=== PATIENT | female | born 1995 | race African-American/Black ===

== ENCOUNTER 2021-12-22 22:27 | Emergency (ER) | payer OTHER ==
--- OUTSIDE RECORDS SUMMARY | 2021-12-22 22:29 | XMS REPORT | Continuity of Care Document ---
:1995 Author Organization [facility] Address [address] [place] [address] Dr. Smart [address] [place] [id number] Care Team Providers Name Role Phone LAVONNE Attending Clinician Unavailable Daren Whitmore Attending Clinician [phone] LAVONNE Admitting Clinician Unavailable Payers Payer Name Policy Type Policy Number Effective Date Expiration Date James ARCOS - [id number] 3236-12-31 00:00:00 [facility] (PPO) Problems This patient has no known problems. Allergies, Adverse Reactions, Alerts This patient has no known allergies or adverse reactions. Medications This patient has no known medications. Procedures This patient has no known procedures. Encounters Start End Encounter Admission Attending Care Care Encounter Source Date/Time Date/Time Type Type Clinicians Facility Department ID 2021-11-29 2021-11-29 Outpatient [facility] [id number] [place] 05:29:00 05:29:00 [facility] 2021-10-25 2021-10-25 Outpatient [facility] [id number] [place] 04:02:00 04:02:00 [facility] 2021-10-18 2021-10-18 Outpatient [facility] [id number] [place] 05:54:00 05:54:00 121 [facility] 2021-10-18 2021-10-18 Outpatient [facility] [id number] [place] 05:54:00 05:54:00 [facility] 2021-10-18 2021-10-18 Outpatient [facility] [id number] 00:00:00 00:00:00 Matt [id number] Daren [id number] 2021-08-15 2021-08-15 Outpatient [facility] [id number] [place] 02:51:00 02:51:00 [facility] 2021-08-15 2021-08-15 Outpatient [facility] [id number] 00:00:00 00:00:00 Matt [id number] Daren [id number] 2021-08-08 2021-08-08 Outpatient [facility] [id number] [place] 12:03:00 12:03:00 [facility] 2021-08-08 2021-08-08 Outpatient [facility] [id number] 00:00:00 00:00:00 Matt [id number] Daren [id number] 2021-06-01 2021-06-01 Outpatient [facility] [id number] [place] 01:02:00 01:02:00 [facility] 2021-04-26 2021-04-26 Outpatient [facility] [id number] [place] 01:18:00 01:18:00 730 [facility] 2021-03-23 2021-03-23 Outpatient [facility] [id number] [place] 01:01:00 01:01:00 626 [facility] 2021-02-15 2021-02-15 Outpatient [facility] [id number] [place] 11:45:00 11:45:00 521 [facility] 2021-02-09 2021-02-09 Outpatient [facility] [id number] [place] 01:01:00 01:01:00 515 [facility] 2021-02-04 2021-02-04 Outpatient [facility] [id number] [place] 09:30:00 09:30:00 510 [facility] 2021-01-29 2021-01-29 Outpatient [facility] [id number] [place] 05:35:00 05:35:00 506 [facility] 2021-01-29 2021-01-29 Outpatient [facility] [id number] [place] 05:33:00 05:33:00 504 [facility] 2021-01-29 2021-01-29 Outpatient Whit[facility], [facility] [id number] 00:00:00 00:00:00 Matt [id number] Daren [id number] 2021-01-05 2021-01-05 Outpatient [facility] [id number] [place] 01:02:00 01:02:00 410 [facility] 2021-01-05 2021-01-05 Outpatient [facility] [id number] [place] 01:02:00 01:02:00 412 [facility] 2021-01-03 2021-01-03 Outpatient [facility] [id number] [place] 11:44:00 11:44:00 408 [facility] 2020-12-29 2020-12-29 Outpatient [facility] [id number] [place] 01:02:00 01:02:00 403 [facility] 2020-11-24 2020-11-24 Outpatient [facility] [id number] [place] 01:02:00 01:02:00 227 [facility] 2020-10-20 2020-10-20 Outpatient [facility] [id number] [place] 01:03:00 01:03:00 123 [facility] 2020-10-05 2020-10-05 Outpatient [facility] [id number] [place] 12:05:00 12:05:00 108 [facility] 2020-10-05 2020-10-05 Outpatient [facility] [id number] [place] 12:05:00 12:05:00 110 [facility] 2020-10-01 2020-10-01 Outpatient [facility] [id number] [place] 05:30:00 05:30:00 104 [facility] 2020-09-15 2020-09-15 Outpatient [facility] [id number] [place] 01:02:00 01:02:00 219 [facility] Results This patient has no known results.
[2021-12-22] MEDS ORDERED: ACETAMINOPHEN 500 MG TAB ONE (23:38)
[2021-12-23 00:06] LABS: Absolute Lymphocytes (CBC) 1.7 K/uL (0.7-4.9); Hematocrit 31.3 % (36.0-45.0); Lymphocytes % 14.1 % (15.3-44.8); MPV 8.9 fL (7.6-11.3); RBC Red Blood Cell Count 4.45 M/uL (3.86-4.86)
[2021-12-23 00:07] LABS: ALT/SGPT 18 U/L (12-78); AST/SGOT 22 U/L (15-37); Albumin 2.5 g/dL (3.4-5.0); Alkaline Phosphatase 230 U/L (45-117); BUN Blood Urea Nitrogen 4 mg/dL (7-18); Bicarbonate 23 mmol/L (21-32); Bilirubin Direct 0.1 mg/dL (0-0.2); Bilirubin Total 0.6 mg/dL (0.2-1.0); Glucose Level 93 mg/dL (74-106); Magnesium 1.9 mg/dL (1.8-2.4); NT PRO-BNP 27 pg/mL (<125); Potassium 3.4 mmol/L (3.5-5.1); Protein, Total 6.1 g/dL (6.4-8.2); Sodium Level 140 mmol/L (136-145); Troponin High Sensitivity 5.4 pg/mL (<58.9)
--- NOTE | 2021-12-23 02:25 | ER ---
Nurse's Notes [facility] Name: Reji Pozo Age: 26 yrs Sex: Female : 1995 Arrival Date: 12/22/2021 Time: 22:29 Bed 13 Private MD: Diagnosis: Chest pain, unspecified;34 weeks gestation of ;UTI/ Urinary tract infection, site not specified Presentation: 12/22 22:49 Chief complaint: Patient states: Reports chest pain to left anterior chest radiating to lp1 left posterior shoulder area since this AM; Denies any events that aggravate pain, denies shortness of breath; Patient reports she is 34 weeks . Coronavirus screen: At this time, the client does not indicate any symptoms associated with coronavirus-19. Ebola Screen: No symptoms or risks identified at this time. Initial Sepsis Screen: Does the patient meet any 2 criteria? No. Patient's initial sepsis screen is negative. Does the patient have a suspected source of infection? No. Patient's initial sepsis screen is negative. Risk Assessment: Do you want to hurt yourself or someone else? Patient reports no desire to harm self or others. Onset of symptoms was December 22, 2021. 22:49 Acuity: YASMINE 3 lp1 22:49 Method Of Arrival: Wheelchair lp1 Triage Assessment: 23:45 General: Appears in no apparent distress. Behavior is calm, cooperative. Pain: russell Complains of pain in chest. 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 - Social history:: Smoking status: Patient denies any tobacco usage or history of. Patient/guardian denies using alcohol, street drugs. Screenin:44 Abuse screen: Denies threats or abuse. Denies injuries from another. Nutritional russell screening: No deficits noted. Tuberculosis screening: No symptoms or risk factors identified. Fall Risk None identified. Assessment: 23:38 Reassessment: Patient appears in no apparent distress at this time. Pain: Complains of russell pain in chest Pain does not radiate. Pain began suddenly, has happened several times before but she hasn't been seen before for this. 12/23 00:05 Cardiovascular: No deficits noted. russell 02:51 Reassessment: eqe=131. russell Vital Signs: 12/22 22:35 BP 114 / 74; Pulse 82; Resp 18; Temp 98.5; Pulse Ox 100% on R/A; Pain 3/10; russell 22:45 BP 113 / 75; Pulse 81; Resp 18; Pulse Ox 100% on R/A; russell 22:49 BP 114 / 74; Pulse 88; Resp 15; Temp 98.5(O); Pulse Ox 100% on R/A; Weight 89.81 kg lp1 (R); Height 5 ft. 5 in. (165.10 cm); Pain 5/10; 23:30 BP 108 / 68; Pulse 78; Resp 18; Pulse Ox 100% on R/A; Pain 0/10; russell 12/23 02:59 BP 106 / 68; Pulse 78; Resp 16; Temp 98.5; Pulse Ox 100% on R/A; Pain 0/10; russell 12/22 22:49 Body Mass Index 32.95 (89.81 kg, 165.10 cm) lp1 ED Course: 12/22 22:29 Patient arrived in ED. ja2 22:31 Julisa Rogers, RN is Primary Nurse. russell 22:33 Jac Lugo MD is Attending Physician. mh7 22:51 Triage completed. lp1 22:51 Arm band placed on. lp1 23:20 Basic Metabolic Panel Sent. russell 23:20 CBC with Diff Sent. russell 23:20 LFT's Sent. russell 23:20 Magnesium Sent. russell 23:20 NT PRO-BNP Sent. russell 23:20 PT-INR Sent. russell 23:21 Troponin HS Sent. russell 23:29 X-ray completed. Portable x-ray completed in exam room. Patient tolerated procedure 1 well. 23:31 XRAY Chest (1 view) In Process Unspecified. EDMS 23:44 Patient has correct armband on for positive identification. Bed in low position. Call russell light in reach. Adult w/ patient. school bus monitor on. Pulse ox on. NIBP on. 23:44 Patient maintains SpO2 saturation greater than 95% on room air. russell 23:45 No provider procedures requiring assistance completed. russell 12/23 01:22 CT Chest For PE Angio In Process Unspecified. EDMS 02:24 Alexander Silvestre MD is Referral Physician. [facility] 02:51 Urine Culture Sent. russell 03:00 intact, bleeding controlled, No redness/swelling at site. Pressure dressing applied. russell Administered Medications: 12/22 23:37 Drug: Tylenol 1000 mg Route: PO; russell 12/23 02:50 Follow up: Response: No adverse reaction; Pain is decreased russell 02:51 Drug: Macrobid (nitrofurantoin) 100 mg Route: PO; russell Outcome: 02:24 Discharge ordered by . [facility] 03:00 Condition: stable russell 03:00 Discharged to home ambulatory, with friend. russell 03:00 Discharge instructions given to patient, Instructed on discharge instructions, follow russell up and referral plans. medication usage, Demonstrated understanding of Prescriptions given X 1. 03:01 Patient left the ED. russell Signatures: Dispatcher [employer] EDMD Pushpa Lowe 1 Cordelia Malcolm, MELINDA RN 1 Jac Lugo MD MD 7 Carmen Choe Brenda, RN RN russell
--- NOTE | 2021-12-23 02:25 | EDPHYS ---
Physician Documentation [facility] Name: Reji Pozo Age: 26 yrs Sex: Female : 1995 Arrival Date: 12/22/2021 Time: 22:29 Bed 13 Private MD: ED Physician Jac Lugo HPI: 12/22 23:00 This 26 yrs old Black Female presents to ER via Wheelchair with complaints of Chest mh7 Pain. 23:00 The patient or guardian reports chest pain that is located primarily in the anterior mh7 chest wall, left. The pain radiates to the left shoulder. Associated signs and symptoms: Pertinent negatives: abdominal pain, cough, diaphoresis, dizziness, headache, lower extremity pain, lower extremity swelling, lightheadedness, nausea, near syncope, palpitations, recent travel, shortness of breath, syncope, vomiting. The chest pain is described as sharp. Duration: The patient or guardian reports multiple episodes, that are intermittent, that wax and wane, with no pattern. Modifying factors: The symptoms are alleviated by nothing. the symptoms are aggravated by nothing. 23:00 Severity of pain: At its worst the pain was moderate today, in the emergency department mh7 the pain has improved moderately. 23:00 Patient is 34 weeks with sharp chest pain that started today. Denies any other mh7 complaints. No complications during this .. 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 - Social history:: Smoking status: Patient denies any tobacco usage or history of. Patient/guardian denies using alcohol, street drugs. ROS: 23:00 Constitutional: Negative for fever, chills, and weight loss, Eyes: Negative for injury, mh7 pain, redness, and discharge, ENT: Negative for injury, pain, and discharge, Neck: Negative for injury, pain, and swelling, Respiratory: Negative for shortness of breath, cough, wheezing, and pleuritic chest pain, Abdomen/GI: Negative for abdominal pain, nausea, vomiting, diarrhea, and constipation, Back: Negative for injury and pain, : Negative for injury, bleeding, discharge, and swelling, MS/Extremity: Negative for injury and deformity, Skin: Negative for injury, rash, and discoloration, Neuro: Negative for headache, weakness, numbness, tingling, and seizure, Psych: Negative for depression, anxiety, suicide ideation, homicidal ideation, and hallucinations, Allergy/Immunology: Negative for hives, rash, and allergies, Endocrine: Negative for neck swelling, polydipsia, polyuria, polyphagia, and marked weight changes, Hematologic/Lymphatic: Negative for swollen nodes, abnormal bleeding, and unusual bruising. Exam: 23:00 Constitutional: This is a well developed, well nourished patient who is awake, alert, mh7 and in no acute distress. Head/Face: Normocephalic, atraumatic. Eyes: Pupils equal round and reactive to light, extra-ocular motions intact. Lids and lashes normal. Conjunctiva and sclera are non-icteric and not injected. Cornea within normal limits. Periorbital areas with no swelling, redness, or edema. Neck: Trachea midline, no thyromegaly or masses palpated, and no cervical lymphadenopathy. Supple, full range of motion without nuchal rigidity, or vertebral point tenderness. No Meningismus. Chest/axilla: Normal chest wall appearance and motion. Nontender with no deformity. No lesions are appreciated. Cardiovascular: Regular rate and rhythm with a normal S1 and S2. No gallops, murmurs, or rubs. Normal PMI, no JVD. No pulse deficits. Respiratory: Lungs have equal breath sounds bilaterally, clear to auscultation and percussion. No rales, rhonchi or wheezes noted. No increased work of breathing, no retractions or nasal flaring. Abdomen/GI: Soft, non-tender, with normal bowel sounds. No distension or tympany. No guarding or rebound. No evidence of tenderness throughout. Back: No spinal tenderness. No costovertebral tenderness. Full range of motion. Skin: Warm, dry with normal turgor. Normal color with no rashes, no lesions, and no evidence of cellulitis. MS/ Extremity: Pulses equal, no cyanosis. Neurovascular intact. Full, normal range of motion. Neuro: Awake and alert, GCS 15, oriented to person, place, time, and situation. Cranial nerves II-XII grossly intact. Motor strength 5/5 in all extremities. Sensory grossly intact. Cerebellar exam normal. Normal gait. 23:00 ECG was reviewed by the Attending Physician. 7 Vital Signs: 22:35 BP 114 / 74; Pulse 82; Resp 18; Temp 98.5; Pulse Ox 100% on R/A; Pain 3/10; russell 22:45 BP 113 / 75; Pulse 81; Resp 18; Pulse Ox 100% on R/A; russell 22:49 BP 114 / 74; Pulse 88; Resp 15; Temp 98.5(O); Pulse Ox 100% on R/A; Weight 89.81 kg lp1 (R); Height 5 ft. 5 in. (165.10 cm); Pain 5/10; 23:30 BP 108 / 68; Pulse 78; Resp 18; Pulse Ox 100% on R/A; Pain 0/10; russell 12/23 02:59 BP 106 / 68; Pulse 78; Resp 16; Temp 98.5; Pulse Ox 100% on R/A; Pain 0/10; russell 12/22 22:49 Body Mass Index 32.95 (89.81 kg, 165.10 cm) lp1 MDM: 02:22 Differential diagnosis: acute myocardial infarction, acute pericarditis, anxiety, mh7 costochondritis, pleurisy, pneumonia, pneumothorax, pulmonary embolus. HEART Score: History: Slightly Suspicious (0), ECG: Non specific repolarization disturbance / LBTB / PM (1), Age: < or = 45 years (0), Risk Factors: No Risk Factors Known (0), Troponin: < or = 1 x Normal Limit (0), Total Score = 1. Data reviewed: vital signs, nurses notes, old medical records, lab test result(s), cardiac enzymes, CBC, electrolytes, urinalysis, EKG, radiologic studies, CT scan, plain films. Data interpreted: Pulse oximetry: on room air is 100 %. Interpretation: normal. Counseling: I had a detailed discussion with the patient and/or guardian regarding: the historical points, exam findings, and any diagnostic results supporting the discharge/admit diagnosis, lab results, radiology results, the need for outpatient follow up, to return to the emergency department if symptoms worsen or persist or if there are any questions or concerns that arise at home. Response to treatment: the patient's symptoms have resolved after treatment, the patient's blood pressure is in an acceptable range, mental status has returned to baseline, the patient no longer shows bradycardia, the patient is not short of breath, the patient is not tachycardic, the patient's pain is gone, the patient's temperature has normalized. 02:24 Patient medically screened. [facility] 12/22 22:54 Order name: Basic Metabolic Panel; Complete Time: 00:18 [facility] 12/22 22:54 Order name: CBC with Diff; Complete Time: 00:18 [facility] 12/22 22:54 Order name: LFT's; Complete Time: 00:18 [facility] 12/22 22:54 Order name: Magnesium; Complete Time: 00:18 [facility] 12/22 22:54 Order name: NT PRO-BNP; Complete Time: 00:18 [facility] 12/22 22:54 Order name: PT-INR; Complete Time: 00:18 [facility] 12/22 22:54 Order name: Troponin HS; Complete Time: 00:18 [facility] 12/22 22:54 Order name: XRAY Chest (1 view) [facility] 12/22 22:54 Order name: EKG; Complete Time: 22:55 [facility] 12/23 00:21 Order name: CT Chest For PE Angio [facility] 12/23 02:37 Order name: Urine Dipstick-Ancillary; Complete Time: 02:43 EDMS 12/23 02:44 Order name: Urine Culture [facility] 12/22 22:54 Order name: Cardiac monitoring; Complete Time: 23:04 [facility] 12/22 22:54 Order name: EKG - Nurse/Tech; Complete Time: 23:05 [facility] 12/22 22:54 Order name: IV Saline Lock; Complete Time: 23:20 [facility] 12/22 22:54 Order name: Labs collected and sent; Complete Time: 23:20 [facility] 12/22 22:54 Order name: O2 Per Protocol; Complete Time: 23:05 [facility] 12/22 22:54 Order name: O2 Sat Monitoring; Complete Time: 23:05 [facility] 12/22 22:54 Order name: Urine Dipstick-Ancillary (obtain specimen); Complete Time: 02:50 [facility] 12/23 02:14 Order name: Heart Tones; Complete Time: 02:51 7 EC/27 23:00 Rate is 88 beats/min. Rhythm is regular, Normal Sinus Rhythm with No ectopy. QRS Halls [facility] is Normal. NM interval is normal. QRS interval is normal. QT interval is normal. No Q waves. T waves are Inverted in leads III, aVF. No ST changes noted. Clinical impression: NSR w/ Non-specific ST/T Changes. Administered Medications: 23:37 Drug: Tylenol 1000 mg Route: PO; russell 12/23 02:50 Follow up: Response: No adverse reaction; Pain is decreased russell 02:51 Drug: Macrobid (nitrofurantoin) 100 mg Route: PO; russell Disposition Summary: 12/23/21 02:24 Discharge Ordered Location: Home [facility] Problem: new [facility] Symptoms: have improved [facility] Condition: Stable [facility] Diagnosis - Chest pain, unspecified [facility] - 34 weeks gestation of [facility] - UTI/ Urinary tract infection, site not specified [facility] Followup: [facility] - With: Private Physician - When: 1 - 2 days - Reason: Worsening of condition, Recheck today's complaints, Continuance of care, Re-evaluation by your physician Followup: [facility] - With: Alexander Silvestre MD - When: 1 - 2 days - Reason: Worsening of condition, Recheck today's complaints, Continuance of care, Re-evaluation by your physician Discharge Instructions: - Discharge Summary Sheet [facility] - Urinary Tract Infection, Adult, [id number] [facility] - Nonspecific Chest Pain, Adult, Cvnw-[id number]-Cztt [facility] - Third Trimester of , Ycfm-xo-Xsus [facility] Forms: - Medication Reconciliation Form [facility] - Thank You Letter [facility] - Antibiotic Education [facility] - Prescription Opioid Use [facility] Prescriptions: - Macrobid 100 mg Oral Capsule - take 1 capsule by ORAL route every 12 hours for 7 days; 14 capsule; Refills: 0, [facility] Product Selection Permitted Signatures: Dispatcher [employer] Jac Pardo MD MD [facility] Julisa Rogers RN RN russell Corrections: (The following items were deleted from the chart) 12/22 23:03 23:00 Severity of pain: At its worst the pain was mh7 [facility]
[2021-12-23 02:36] LABS: Urine Blood Negative (Negative); Urine Glucose Negative (Negative); Urine Protein 1+ (Negative); Urine Specific Gravity 1.025 (1.005-1.030); Urine pH 6.5 (5.0-7.0)
[2021-12-23 03:05] VITALS: TEMP 98.5; O2SAT 100
[2021-12-23 03:11] VITALS: BP 106/68
--- NOTE | 2021-12-23 11:38 | RAD REPORT ---
EXAM DESCRIPTION: CT - Chest For Pe Angio - 12/23/2021 2:42 am CLINICAL HISTORY: The patient is 26 years old and is Female; CHEST PAIN TECHNIQUE: Axial computed tomographic angiography images of the chest with intravenous contrast. S agittal and coronal reformatted images were created and reviewed. This CT exam was performed using one or more of the following dose reduction techniques: automated exposure control, adjustment of t he mA and/or kV according to patient size, and/or use of iterative reconstruction technique. MIP re constructed images were created and reviewed. COMPARISON: No relevant prior studies available. FINDINGS: Limitations: Evaluation is somewhat limited due to suboptimal contrast bolus. Pulmonary arteries: Unremarkable. No pulmonary embolism. Aorta: No acute findings. No thoracic aortic aneurysm. Lungs: Unremarkable. No mass. No consolidation. Pleural space: Unremarkable. No significant effusion. No pneumothorax. Heart: Unremarkable. No cardiomegaly. No significant pericardial effusion. No evidence of RV dysfunction. Bones/joints: No acute fracture. No dislocation. Soft tissues: Unremarkable. Lymph nodes: Unremarkable. No enlarged lymph nodes. IMPRESSION: No acute finding. No evidence of pulmonary embolism, though evaluation is somewhat limit ed due to suboptimal contrast bolus. Electronically signed by: Ifeanyi Powell MD 12/23/2021 2:03 AM CDT Due to temporary technical issues with the PACS/Fluency reporting system, reports are being signed by the in house radiologist without review as a courtesy to ensure prompt reporting. The interpreting r adiologist is fully responsible for the content of the report.
--- NOTE | 2021-12-23 12:32 | RAD REPORT ---
EXAM DESCRIPTION: RAD - Chest Single View - 12/22/2021 11:29 pm CLINICAL HISTORY: CHEST PAIN COMPARISON: None. TECHNIQUE: AP Chest. FINDINGS: Normal cardiac size. Pulmonary vasculature appears normal. Normal cardiomediastinal contou rs. Lungs are clear. Pleural spaces are clear. Unremarkable soft tissues and bones. IMPRESSION: 1. Negative chest exam. Electronically signed by: Alejandra Vázquez DO 12/22/2021 11:42 PM CDT Due to temporary technical issues with the PACS/Fluency reporting system, reports are being signed by the in house radiologist without review as a courtesy to ensure prompt reporting. The interpreting r adiologist is fully responsible for the content of the report.
--- NOTE | 2021-12-24 12:37 | EKG ---
Test Date: 2021-12-22 Test Time: 22:34:46 Bevel Polisher: KALYN MEASUREMENT RESULTS: Intervals: Rate: 88 KS: 154 QRSD: 78 QT: 352 QTc: 425 [place]: P: 31 KS: 154 QRS: 41 T: -8 INTERPRETIVE STATEMENTS: Normal sinus rhythm Nonspecific T wave abnormality Abnormal ECG Compared to ECG 11/06/2015 21:28:56 No significant changes Electronically Signed On 12-24-21 12:33:30 CDT by Tito Dyson
== END 2021-12-23 03:01 | disposition home or self-care (01) ==
LOC: ER 22:27
DX: O23.43 Unspecified infection of urinary tract in pregnancy, third trimester (principal); N39.0 Urinary tract infection, site not specified; Z3A.34 34 weeks gestation of pregnancy
CPT/HCPCS: 93005; 87088; 85025; 87086; 80048; 36415; 83735; 85610; 80076; 81003; 84484; 83880; 71275; 71045; 99285; Q9967

== ENCOUNTER 2022-01-20 09:15 | Inpatient (IN) | payer OTHER ==
--- OUTSIDE RECORDS SUMMARY | 2022-01-20 09:18 | XMS REPORT | Continuity of Care Document ---
:1995 Author Organization [facility] Address [address] [place] [address] Dr. Smart [address] [place] [id number] Care Team Providers Name Role Phone LAVONNE Attending Clinician Unavailable Daren Whitmore Attending Clinician [phone] LAVONNE Admitting Clinician Unavailable Payers Payer Name Policy Type Policy Number Effective Date Expiration Date James ARCOS - [id number] 7813-12-31 00:00:00 FORMERLY [facility] Problems This patient has no known problems. Allergies, Adverse Reactions, Alerts This patient has no known allergies or adverse reactions. Medications This patient has no known medications. Procedures This patient has no known procedures. Encounters Start End Encounter Admission Attending Care Care Encounter Source Date/Time Date/Time Type Type Clinicians Facility Department ID 2022-01-03 2022-01-03 Outpatient ERICKSON_R [facility] [id number] [place] 06:58:00 06:58:00 [facility] 2021-11-29 2021-11-29 Outpatient [facility]SON[facility] [id number] [place] 05:29:00 05:29:00 [facility] 2021-10-25 2021-10-25 Outpatient [facility] [id number] [place] 04:02:00 04:02:00 [facility] 2021-10-18 2021-10-18 Outpatient [facility] [id number] [place] 05:54:00 05:54:00 [facility] 2021-10-18 2021-10-18 Outpatient [facility]SON[facility] [id number] - [place] 05:54:00 05:54:00 [facility] 2021-10-18 2021-10-18 Outpatient Haim [facility] [id number] 00:00:00 00:00:00 Matt [id number] Daren [id number] 2021-08-15 2021-08-15 Outpatient [facility]SON[facility] [id number] [place] 02:51:00 02:51:00 [facility] 2021-08-15 2021-08-15 Outpatient Haim [facility] [id number] 00:00:00 00:00:00 Matt [id number] Daren [id number] 2021-08-08 2021-08-08 Outpatient [facility] [id number] [place] 12:03:00 12:03:00 [facility] 2021-08-08 2021-08-08 Outpatient Haim [facility] [id number] 00:00:00 00:00:00 Matt [id number] Daren [id number] 2021-06-01 2021-06-01 Outpatient [facility]SON_R [facility] [id number] [place] 01:02:00 01:02:00 [facility] 2021-04-26 2021-04-26 Outpatient [facility] [id number] [place] 01:18:00 01:18:00 730 [facility] 2021-03-23 2021-03-23 Outpatient [facility] [id number] [place] 01:01:00 01:01:00 626 [facility] 2021-02-15 2021-02-15 Outpatient [facility] [id number] [place] 11:45:00 11:45:00 521 [facility] 2021-02-09 2021-02-09 Outpatient [facility] [id number] [place] 01:01:00 01:01:00 515 [facility] 2021-02-04 2021-02-04 Outpatient [facility] [id number] [place] 09:30:00 09:30:00 510 [facility] 2021-01-29 2021-01-29 Outpatient [facility] [id number] [place] 05:35:00 05:35:00 506 [facility] 2021-01-29 2021-01-29 Outpatient [facility] [id number] [place] 05:33:00 05:33:00 504 [facility] 2021-01-29 2021-01-29 Outpatient Whitmore, [facility] [id number] 00:00:00 00:00:00 Matt [id number] Daren [id number] 2021-01-05 2021-01-05 Outpatient [facility] [id number] [place] 01:02:00 01:02:00 410 [facility] 2021-01-05 2021-01-05 Outpatient [facility] [id number] [place] 01:02:00 01:02:00 412 [facility] 2021-01-03 2021-01-03 Outpatient [facility] [id number] [place] 11:44:00 11:44:00 408 [facility] 2020-12-29 2020-12-29 Outpatient [facility] [id number] [place] 01:02:00 01:02:00 403 [facility] 2020-11-24 2020-11-24 Outpatient [facility]SON_R [facility] [id number] [place] 01:02:00 01:02:00 227 [facility] 2020-10-20 2020-10-20 Outpatient [facility]SON_R [facility] [id number] [place] 01:03:00 01:03:00 123 [facility] 2020-10-05 2020-10-05 Outpatient [facility]SON[facility]R [facility] [id number] [place] 12:05:00 12:05:00 108 [facility] 2020-10-05 2020-10-05 Outpatient [facility] [id number] [place] 12:05:00 12:05:00 110 [facility] 2020-10-01 2020-10-01 Outpatient [facility] [id number] [place] 05:30:00 05:30:00 104 [facility] 2020-09-15 2020-09-15 Outpatient [facility]SON_R [facility] [id number] - [place] 01:02:00 01:02:00 [facility] Results This patient has no known results.
[2022-01-20] MEDS ORDERED: DIPHENHYDRAMINE 25 MG TAB/CAP PO PRN ×2 (09:22→13:57)
[2022-01-20] MEDS ORDERED: PROMETHAZINE INJ 25 MG/ML AMP IM PRN (09:22)
[2022-01-20] MEDS ORDERED: CARBOPROST TROME 250 MCG/ML IM PRN (09:22)
[2022-01-20] MEDS ORDERED: METHYLERGONOVINE 0.2MG/ML AMP IM PRN (09:22)
[2022-01-20] MEDS ORDERED: BUTORPHANOL 1 MG/ML INJ IV PRN (09:22)
[2022-01-20] MEDS ORDERED: MAGNES/ALUMIN/SIMET 30ML UCUP PO PRN (09:22)
[2022-01-20] MEDS ORDERED: Ringers Lactate 1,000 ML IV PRN (09:22)
[2022-01-20] MEDS ORDERED: LIDOCAINE 1% 20 ML MDV ONE (09:29)
[2022-01-20 09:56] LABS: Urine Appearance Clear (Clear); Urine Bilirubin Negative (Negative); Urine Blood Negative (Negative); Urine Color Yellow (Yellow); Urine Glucose Negative (Negative); Urine Protein Negative (Negative); Urine Urobilinogen 0.2 mg/dL (0.2-1.0)
[2022-01-20 09:56] LABS: Absolute Lymphocytes (CBC) 1.8 K/uL (0.7-4.9); Hematocrit 32.2 % (36.0-45.0); Lymphocytes % 18.7 % (15.3-44.8); MPV 9.2 fL (7.6-11.3); RBC Red Blood Cell Count 4.59 M/uL (3.86-4.86)
[2022-01-20 09:59] LABS: Urine Microscopic Reflex ORDER UMIC
[2022-01-20] MEDS ORDERED: OXYTOCIN/LR 20 UNIT/1,000 ML BAG IV SCH ×2 (10:00→14:00)
[2022-01-20] MEDS ORDERED: Ringers Lactate 1,000 ML IV SCH (10:00)
[2022-01-20 10:01] LABS: Urine Bacteria <20 /HPF (<20); Urine RBC <5 /HPF (NONE SEEN)
[2022-01-20 10:32] VITALS: BMI 32.9
--- NOTE | 2022-01-20 11:53 | PREOPHP ---
Date of Admission: 01/20/2022 History Of Present Illness: Reji Pozo is a 26-year-old, 2, para 1, 38 weeks 4 days, urbano d her first baby at 37 weeks. The patient has been progressively dilated in the office today. She i s 8 cm, 90% effaced, 0 station. She is having minimal contractions, but she lives 20-25 minutes away , I do not think we can let her go home with the risk of delivery outside the hospital being so great . The patient agrees. She has been sent to Labor and Delivery. Family History: Maternal grandmother, heart attack. Mother with thyroid cancer. Family history of blood clots. 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 Past Surgical History: No previous surgeries. Allergies: NO ALLERGIES. Medications: vitamins prior to admission. Social History: Does not smoke. Physical Examination: HEENT: Clear. Pupils equal, round, reactive to light and accommodation. Conjunctivae well perfused . No oral, lingual, or buccal lesions. Chest and Lungs: Clear. Heart: Without murmurs, thrills, heaves, or rubs. Breasts: Without masses. Abdomen: Term size. Extremities: Clear. Assessment And Plan: The patient is 8 cm, 90% to 100% effaced, 0 station, rupture of membranes. We will start her on Pitocin at this time. Beta strep test is negative. Admission talk given. I think as soon as the patient starts having any significant contractions, will have a baby. RACHEL/WILFREDO Voice ID: [id number]
[2022-01-20] MEDS ORDERED: BUTORPHANOL 1 MG/ML INJ ONE (12:38)
[2022-01-20] MEDS ORDERED: DOCUSATE NA/SENNA CONC 1 TAB PO PRN (13:57)
[2022-01-20] MEDS ORDERED: BISACODYL 10 MG RECTAL SUPP RC PRN (13:57)
[2022-01-20] MEDS ORDERED: Oxycodone HCl/Acetaminophen 1 TAB TAB PO PRN (13:57)
[2022-01-20] MEDS ORDERED: ACETAMINOPHEN 500 MG TAB PO PRN (13:57)
[2022-01-20] MEDS ORDERED: LIDOCAINE 1% MPF 30 ML VIAL SQ ONE (14:35)
[2022-01-20] MEDS: IBUPROFEN 600 MG TAB PO PRN (15:15)
[2022-01-20] MEDS: Oxycodone HCl/Acetaminophen 1 TAB TAB PO PRN ×2 (16:24→23:44)
[2022-01-20 23:35] LABS: RPR (Rapid Plasma Reagin) NON-REACT (NON-REACT)
--- NOTE | 2022-01-21 01:36 | DN ---
Date of Procedure: 01/20/2022 Surgeon: Alexander Silvestre MD A 26-year-old, 2, para 1, previous history of delivery at 37 weeks, now 38 weeks 4 days, note d to be 8 cm in the office, 90% effaced, vertex 0 station, sent to Labor and Delivery. Pitocin augme ntation was performed during the labor. She received 1 mg of Stadol IV, 25 mg of Phenergan IM. Seco nd stage of basically 1 to 2 pushes spontaneous vaginal delivery of a 7-pound 15-ounce male , A pgars 9 and 9. Somewhat jagged lacerations. A posterior fourchette repaired with 2-0 chromic after local infiltration and one mqggsk-mr-ijqxt stitch to the right and below the urethra on the patient's right side. Cunningham delivery of the placenta. Uterus mildly hypotonic, 0.2 mg of Methergine IM give n. Estimated blood loss 350 to 400 cc. The patient tolerated all procedures well. Rh positive, imm une to Rubella. Negative beta strep. Final Diagnoses: Term intrauterine at 38 weeks 4 days, vaginal delivery, mild uterine hypo tonus. NBC/MODL Voice ID: [id number] Report ID: [id number]
[2022-01-21] MEDS: IBUPROFEN 600 MG TAB PO PRN ×2 (02:23→09:52)
--- NOTE | 2022-01-21 09:05 | DS ---
Hospital Course: Reji Pozo is a 26-year-old, 2, para 1, 38 weeks 4 days. Delivered of a 7-pound 15-ounce male infant, Apgars 9 and 9. No episiotomy. Very small first-degree laceration to posterior fourchette, repaired with 2-0 chromic local infiltration and a single jbgvxn-lf-enktw st itch and a very small first-degree laceration to the right below the urethra. Cunningham delivery of the placenta, which was inspected and noted to be intact and normal. Mild uterine hypotonus, 0.2 Mether gine given IM. Estimated blood loss 350-400 cc. Rh positive, immune to rubella, negative strep. Po stpartum; afebrile, ambulating, voiding. Lochia is normal. Will be dismissed later today to report back to my office in 6 weeks for followup to report any temperature elevation of 100 degrees or great er, severe pain, heavy bleeding, or any other type of abnormalities. She has already had her Tdap im munization, requests no analgesics on dismissal. Full instructions given. Final Diagnoses: Intrauterine gestation at 38 weeks and 4 days, vaginal delivery, mild uterine hypot onus. SAMINAC/MODL Voice ID: [id number] Report ID: [id number]
[2022-01-21 12:10] VITALS: BP 123/71; TEMP 98.1
[2022-01-23 04:11] LABS: HBsAG Nonreactive (Nonreactive)
== END 2022-01-21 17:00 | disposition home or self-care (01) | DRG 807 ==
LOC: 2ND-WC 09:15
PROVIDERS: ADMIT Specialist; ATTEND Specialist
PROC: 10E0XZZ Delivery of Products of Conception, External Approach (ICD-10-PCS; principal; 2022-01-20)
PROC: 10907ZC Drainage of Amniotic Fluid, Therapeutic from Products of Conception, Via Natural or Artificial Opening (ICD-10-PCS; 2022-01-20)
PROC: 0HQ9XZZ Repair Perineum Skin, External Approach (ICD-10-PCS; 2022-01-20)
DX: O70.0 First degree perineal laceration during delivery (principal); Z37.0 Single live birth; O62.2 Other uterine inertia; Z3A.38 38 weeks gestation of pregnancy; Z20.822 Contact with and (suspected) exposure to COVID-19
CPT/HCPCS: 36415; 81003; 81015; 85025; 86592; 86901; 87086; 87088; 87340; J0595; J2210; J2550; J2590; J7120; U0003

== ENCOUNTER 2024-01-28 12:31 | Emergency (ER) | payer OTHER ==
--- OUTSIDE RECORDS SUMMARY | 2024-01-28 12:34 | XMS REPORT | Continuity of Care Document ---
Author Name Unknown Address [address] [facility] [address] [place] [address] [facility] thconnect Address [address] [place] [address] Care Team Providers Care First Grade Teacher Name Role Phone Lida Dias Primary Care Physicia n LIDA ALMODOVAR Attending Clinician Unava ilable Lida Dias Attending Clinician + ROUSE_F Attending Clinician Unavailable Edith Mcgraw CNM Attending Clinician Unavail able LAVONNE Attending Clinician Unavailable GC_GCBZW_Christa_S Attending Clinician Unavaila Ashley Peterson Attending Clinician [phone] Matt Mccloud Attending Clinician [phone] ROUSE_F Admitting Clinician Unavailable Edith Mcgraw CNM Admitting Clinician Unavail able ELISEON_Kelsey Admitting Clinician Unavailable GC_GCBZW_Christa_S Admitting Clinician Unavaila ble Payers Payer Name Policy Type Policy Number Effective Date Expirati on Date Source [place] [facility] [place]MEDICAID) [id number] [facility] (MEDICAID REPLACEMENT - HMO) [id number] 2021 00:00:00 [facility] ([facility] [id number] 00:00:00 Problems Condition Name Condition Details Condition Category Status Onset Date Resolution Date Last Treatment Date Treating Clinician Comments Source COVID-19 Covid-19 Problem Active - 00:00: 00 [facility] History of SARS-CoV-2 History of SARS-CoV-2 Problem Active 10-18 00:00: 00 [facility] Idiopathic peripheral neuropathy Idiopathic Peripheral Neuropathy Problem Active 01-29 00:00: 00 [facility] Low back pain Low Back Pain Problem Active 01-29 00:00: 00 [facility] Iron deficiency without anemia Iron Deficiency without Anemia Problem Active 06-15 00:00: 00 [facility] Plantar fasciitis Plantar Fasciitis Problem Active 03-05 00:00: 00 [facility] Congenital pes planus Congenital Pes Planus Problem Active 03-05 00:00: 00 [facility] Synovial cyst of knee Synovial Cyst of Knee Problem Active 03-05 00:00: 00 [facility] Allergies, Adverse Reactions, Alerts Allergy Name Allergy Type Status Severity Reaction(s) Onset Date Inactive Date Treating Clinician Comments Source NO KNOWN ALLERGIE S Drug Class Active [facility] Social History Social Habit Start Date Stop Date Quantity Comments Source [facility] 2024-01-14 00:00:00 2024-01-14 00:00:00 Current drinker of alcohol (finding) [facility] History of Social function 2024-01-14 00:00:00 2024-01-14 00:00:00 [facility] Alcohol Comment 2024-01-13 00:00:00 2024-01-13 00:00:00 "Ocassionally" [facility] Tobacco use and exposure 2016-04-24 00:00:00 2016-04-24 00:00:00 Smokeless tobacco non-user [facility] Sex Assigned At 1995 00:00:00 1995 00:00:00 [facility] Smoking Status Start Date Stop Date Source Former Smoker [facility] Never smoked tobacco [facility] Medications Ordered Medication Name Filled Medication Name Start Date Stop Date Current Medication? Ordering Clinician Indication Dosage Frequency Signature (SIG) Comments Components Source metroNIDAZO LE 500 mg tablet 01-20 00:00: 00 01-28 04:59 :00 Yes [id number] 500mg Take 1 tablet by mouth in the morning and 1 tablet in the evening. Do all this for 7 days. [facility] levonorgest rel-ethinyl estradiol (LARISSIA) 0.1-20 mg-mcg per tablet 01-14 00:00: 00 Yes [id number] 1{tbl} Take 1 tablet by mouth in the morning. [facility] Butalbital- Acetaminoph en-Caff 50-300-40 mg per capsule 01-12 15:37: 19 01-12 00:00 :00 No TAKE 1 CAPSULE EVERY 4 HOURS BY MOUTH NEEDED FOR 15 DAYS, FOR HEADACHES. [facility] levonorgest rel-ethinyl estradiol (LARISSIA) 0.1-20 mg-mcg per tablet 01-12 00:00: 00 01-14 00:00 :00 No [id number] 1{tbl} Take 1 tablet by mouth in the morning. [facility] Fioricet 50 mg-300 mg-40 mg capsule Take 1 capsule every 4 hours by oral route as needed for 15 days, for Headaches. Fioricet 50 mg-300 mg-40 mg capsule Take 1 capsule every 4 hours by oral route as needed for 15 days, for Headaches. No 1capsul e(s) Q4H Fioricet 50 mg-300 mg-40 mg capsule Take 1 capsule every 4 hours by oral route as needed for 15 days, for Headaches. [facility] Immunizations Ordered Immunization Name Filled Immunization Name Date Status Comments Source TDAP Unknown Completed [facility] TDAP Unknown Completed [facility] TDAP Unknown Completed [facility] TDAP Unknown Completed [facility] Vital Signs Vital Name Observation Time Observation Value Comments S iglesia Systolic blood pressure 2024-01-13 20:06:00 129 mm[Hg] [facility] Diastolic blood pressure 2024-01-13 20:06:00 65 mm[Hg] [facility] Heart rate 2024-01-13 20:06:00 81 /min [facility] Body temperature 2024-01-13 20:06:00 36.56 Alicia [facility] Respiratory rate 2024-01-13 20:06:00 20 /min [facility] Body height 2024-01-13 20:06:00 167.6 cm [facility] Body weight 2024-01-13 20:06:00 101.606 kg [facility] BMI 2024-01-13 20:06:00 36.15 kg/m2 [facility] BP Diastolic 2023-12-30 00:00:00 64 mm[Hg] [facility] BP Systolic 2023-12-30 00:00:00 112 mm[Hg] [facility] BMI (Body Mass Index) 2023-12-30 00:00:00 36 kg/m2 [facility] Height 2023-12-30 00:00:00 66 [in_i] [facility] Body Weight 2023-12-30 00:00:00 3568 [oz_av] [facility] BP Diastolic 2023-07-23 00:00:00 76 mm[Hg] [facility] Body Weight 2023-07-23 00:00:00 3360 [oz_av] [facility] BMI (Body Mass Index) 2023-07-23 00:00:00 33.9 kg/m2 [facility] Height 2023-07-23 00:00:00 66 [in_i] [facility] BP Systolic 2023-07-23 00:00:00 124 mm[Hg] [facility] BP Systolic 2023-06-09 00:00:00 102 mm[Hg] [facility] BMI (Body Mass Index) 2023-06-09 00:00:00 32.6 kg/m2 [facility] BP Diastolic 2023-06-09 00:00:00 58 mm[Hg] [facility] Body Weight 2023-06-09 00:00:00 3232 [oz_av] [facility] Height 2023-06-09 00:00:00 66 [in_i] [facility] BP Diastolic 2022-11-21 00:00:00 60 mm[Hg] [facility] Height 2022-11-21 00:00:00 66 [in_i] [facility] BMI (Body Mass Index) 2022-11-21 00:00:00 32.9 kg/m2 [facility] BP Systolic 2022-11-21 00:00:00 118 mm[Hg] [facility] Body Weight 2022-11-21 00:00:00 3264 [oz_av] [facility] BP Diastolic 2022-03-14 00:00:00 67 mm[Hg] [facility] Height 2022-03-14 00:00:00 66 [in_i] [facility] BMI (Body Mass Index) 2022-03-14 00:00:00 31.1 kg/m2 [facility] BP Systolic 2022-03-14 00:00:00 117 mm[Hg] [facility] Body Weight 2022-03-14 00:00:00 3080 [oz_av] [facility] Height 2021-10-18 00:00:00 66 [in_i] [facility] BP Diastolic 2021-08-15 00:00:00 52 mm[Hg] [facility] Height 2021-08-15 00:00:00 66 [in_i] [facility] BMI (Body Mass Index) 2021-08-15 00:00:00 29.1 kg/m2 [facility] BP Systolic 2021-08-15 00:00:00 100 mm[Hg] [facility] Body Weight 2021-08-15 00:00:00 2880 [oz_av] [facility] BP Diastolic 2021-08-08 00:00:00 78 mm[Hg] [facility] Height 2021-08-08 00:00:00 66 [in_i] [facility] BMI (Body Mass Index) 2021-08-08 00:00:00 29.1 kg/m2 [facility] BP Systolic 2021-08-08 00:00:00 124 mm[Hg] [facility] Body Weight 2021-08-08 00:00:00 2880 [oz_av] [facility] BP Diastolic 2021-01-29 00:00:00 66 mm[Hg] [facility] Height 2021-01-29 00:00:00 66 [in_i] [facility] BMI (Body Mass Index) 2021-01-29 00:00:00 29.4 kg/m2 [facility] BP Systolic 2021-01-29 00:00:00 114 mm[Hg] [facility] Body Weight 2021-01-29 00:00:00 2912 [oz_av] [facility] Procedures Procedure Date / Time Performed Performing Clinician Source THYROID STIMULATING HORMONE 2024-01-13 20:47:00 Lida Almodovar [facility] CBC WITH DIFF 2024-01-13 20:47:00 Carolina mustafa [facility] HIV 1/2 AG-AB WITH REFLEX 2024-01-13 20:47[facility]00 [facility] 2021-01-29 00:00:00 [facility] Plan of Care Planned Activity Planned Date Details Comments Source Future Appointment 2024-06-09 09:00:00 Moses Mayer se, [address]; [address], [place] [address] [facility] Instructions [facility] Encounters Start Date/Time End Date/Time Encounter Type Admission Type Attending Clinicians Care Facility Care Department Encounter ID Source 2024-01-21 00:00:00 2024-01-21 00:00:00 Patient Secure Msg Héctor-Opal us [facility] [id number] [facility] 2024-01-14 00:00:00 2024-01-14 00:00:00 [facility] [id number] [facility] 2024-01-13 15:00:00 2024-01-13 15:52:24 [id number] 2024-01-13 15:00:00 2024-01-13 15:52:24 Office Visit Fadumor us [facility] [id number] [facility] 2023-12-30 00:00:00 2023-12-30 00:00:00 DOLLY LozanoC: [place] [address] , Ph. [phone] JENSEN_Pola [facility], SHANIA LOZANO [id number] [facility] 2023-12-29 00:00:00 2023-12-29 00:00:00 Outpatient JENSEN_Pola [facility] [id number] [facility] 2023-07-23 00:00:00 2023-07-23 00:00:00 SHANIA Mcnulty: [place] [address] , Ph. [facility], [address] [place] [id number] [facility] 2023-06-10 08:56:00 2023-06-10 08:56:00 Outpatient Edith Schmid [facility] CL45 [id number] [facility] 2023-06-09 00:00:00 2023-06-09 00:00:00 Outpatient ERICKSON_R [facility] [id number] [facility] 2023-06-09 00:00:00 2023-06-09 00:00:00 Outpatient ERICKSON_R [facility] [id number] [facility] 2023-06-09 00:00:00 2023-06-09 00:00:00 Outpatient ERICKSON_R [facility] [id number] [facility] 2023-06-09 00:00:00 2023-06-09 00:00:00 Matt [place], DO: [place] [address] , Ph. [phone] [facility], [place] [place] [id number] [facility] 2023-06-08 00:00:00 2023-06-08 00:00:00 Outpatient GC_GCBZW_Ka diyala_S [facility] [id number] [facility] 2022-11-21 00:00:00 2022-11-21 00:00:00 Matt [place], DO: [address] [place] [address] , Ph. [facility], [place] [place] [id number] [facility] 2022-10-07 00:00:00 2022-10-07 00:00:00 Outpatient ERICKSON_R [facility] [id number] [facility] 2022-10-07 00:00:00 2022-10-07 00:00:00 Outpatient ERICKSON_R [facility] [id number] [facility] 2022-10-07 00:00:00 2022-10-07 00:00:00 Outpatient ERICKSON_R [facility] [id number] [facility] 2022-10-07 00:00:00 2022-10-07 00:00:00 Outpatient ERICKSON_R [facility] [id number] [facility] 2022-10-07 00:00:00 2022-10-07 00:00:00 Outpatient ERICKSON_R [facility] [id number] [facility] 2022-10-07 00:00:00 2022-10-07 00:00:00 Outpatient ERICKSON_R [facility] [id number] [facility] 2022-03-14 04:59:00 2022-03-14 04:59:00 Outpatient ERICKSON_R [facility] [id number] [facility] 2022-03-14 00:00:00 2022-03-14 00:00:00 Ashley Dixon, MSN, LOAN REVIEW OFFICER, [employer] SALES LEADER-C: [address], [address] [place] [address] , Ph. [facility], Ashley Dixon, MSN, [employer] SAL[employer] LEADER-C [id number] [facility] 2022-03-14 00:00:00 2022-03-14 00:00:00 Outpatient Ashley Dixon [facility] [id number] 2022-01-03 06:58:00 2022-01-03 06:58:00 Outpatient ERICKSON_R [facility] [id number] [facility] 2021-11-29 05:29:00 2021-11-29 05:29:00 Outpatient ERICKSON_R [facility] [id number] [facility] 2021-10-25 04:02:00 2021-10-25 04:02:00 Outpatient ERICKSON_R [facility] [id number] [facility] 2021-10-18 05:54:00 2021-10-18 05:54:00 Outpatient ERICKSON_R [facility] [id number] [facility] 2021-10-18 00:00:00 2021-10-18 00:00:00 Matt Houston, DO: [address], [place] [address] , Ph. [facility], [place] [place] [id number] [facility] 2021-10-18 00:00:00 2021-10-18 00:00:00 Outpatient Matt Houston [facility] [id number] 2021-08-15 02:51:00 2021-08-15 02:51:00 Outpatient ERICKSON_R [facility] [id number] [facility] 2021-08-15 00:00:00 2021-08-15 00:00:00 Outpatient Matt Houston [facility] [id number] 2021-08-15 00:00:00 2021-08-15 00:00:00 Matt Houston, DO: [address] [place] [address] , Ph. [facility], [address] [place] [id number] [facility] 2021-08-08 12:03:00 2021-08-08 12:03:00 Outpatient ERICKSON_R [facility] [id number] [facility] 2021-08-08 00:00:00 2021-08-08 00:00:00 Outpatient Matt Houston [facility] [id number] 2021-08-08 00:00:00 2021-08-08 00:00:00 Matt Houston, DO: [address] [place] [address] , Ph. [phone] [facility], [address] [place] [id number] [facility] 2021-06-01 01:02:00 2021-06-01 01:02:00 Outpatient ERICKSON_R [facility] [id number] [facility] 2021-04-26 01:18:00 2021-04-26 01:18:00 Outpatient ERICKSON_R [facility] [id number] [facility] 2021-03-23 01:01:00 2021-03-23 01:01:00 Outpatient ERICKSON_R [facility] [id number] [facility] 2021-02-15 11:45:00 2021-02-15 11:45:00 Outpatient ERICKSON_R [facility] [id number] [facility] 2021-02-09 01:01:00 2021-02-09 01:01:00 Outpatient ERICKSON_R [facility] [id number] [facility] 2021-02-04 09:30:00 2021-02-04 09:30:00 Outpatient ERICKSON_R [facility] [id number] [facility] 2021-01-29 05:35:00 2021-01-29 05:35:00 Outpatient ERICKSON_R [facility] [id number] [facility] 2021-01-29 00:00:00 2021-01-29 00:00:00 Outpatient Matt Houston [facility] [id number] 2021-01-29 00:00:00 2021-01-29 00:00:00 Matt Houston, DO: [address], [place] [address] , Ph. [facility], [address] [place] [id number] [facility] 2021-01-05 01:02:00 2021-01-05 01:02:00 Outpatient ERICKSON_R [facility] [id number] [facility] 2021-01-03 11:44:00 2021-01-03 11:44:00 Outpatient ERICKSON_R [facility] [id number] [facility] 2020-12-29 01:02:00 2020-12-29 01:02:00 Outpatient ERICKSON_R [facility] [id number] [facility] 2020-11-24 01:02:00 2020-11-24 01:02:00 Outpatient ERICKSON_R [facility] [id number] [facility] 2020-10-20 01:03:00 2020-10-20 01:03:00 Outpatient ERICKSON_R [facility] [id number] [facility] 2020-10-05 12:05:00 2020-10-05 12:05:00 Outpatient ERICKSON_R [facility] [id number] [facility] 2020-10-01 05:30:00 2020-10-01 05:30:00 Outpatient ERICKSON_R [facility] [id number] [facility] 2020-09-15 01:02:00 2020-09-15 01:02:00 Outpatient ERICKSON_R [facility] [id number] [facility] Results Test Description Test Time Test Comments Results Result Co mments Source [facility] 1 01:32:00* Test Item Value Reference Range Interpretation Comme nts AB HIV 1 2 (test code = HSS38VT) Nonreactive NonReactive It is recognized that currently available assays for thedetection of antibodies to HIV-1 and/or HIV-2 may notdetect all infected individuals. A negative test result doesnot exclude the possibility of exposure to or infection withHIV. HIV antibodies may be undetectable in some stages ofthe infection and in some clinical conditions. AG HEPAT B [id number] 01:23:00* Test Item Value Reference Range Interpretation Comme nts AG HEPAT B SURF (test code = HBSAG) NonReactive Index Nonreactive AB [id number] 01:23:00* Test Item Value Reference Range Interpretation Comme nts AB TREPONEMA (test code = TREPAB) Negative Index NonReactive [id number] 01:07:00* Test Item Value Reference Range Interpretation Comme nts GLYCOSYLATED HEMOGLOBIN (HA1C) (test code = GLYHGB) 5.4 % HbA1 SUGGESTED DIAGNO SIS: HbA1C (%) ----- Diabetic >6.4Prediabetes 5.7 - 6.4Normal <5.7 ESTIMATED AVERAGE GLUCOSE (test code = EAG) 108 MG/DL THYROID STIMULATING [id number] 01:07:00* Test Item Value Reference Range Interpretation Comme nts THYROID STIMULATING HORMONE (test code = TSH) 1.045 uIU/mL 0.36-3.74 N TSH REFERENCE RANGES: EUTHYROID: 0.35 - 4.3 mIU/mL HYPO : > 5.5 mIU/mL HYPER : < 0.35 mIU/mL CBC W/AUTO [id number] 22:21:00* Test Item Value Reference Range Interpretation Comme nts WHITE BLOOD CELL (test code = WBC) 8.4 K/mm3 4.5-12.5 N RED BLOOD CELL (test code = RBC) 5.18 mill/mm3 3.7-5.2 N HEMOGLOBIN (test code = HGB) 11.5 gram/dL 11.5-15.5 N HEMATOCRIT (test code = HCT) 38.3 % 36.0-46.0 N MEAN CELL VOLUME (test code = MCV) 73.9 fL 80-98 L MEAN CELL HGB (test code = MCH) 22.2 picogram 27.0-33.0 L MEAN CELL HGB CONCETRATION (test code = MCHC) 30.0 gram/dL 33.0-36.0 L RED CELL DISTRIBUTION WIDTH (test code = RDW) 17.0 % 11.6-16.2 H RED CELL DISTRIBUTION WIDTH SD (test code = RDW-SD) 44.4 fL 37.0-51.0 N PLATELET COUNT (test code = PLT) 215 K/mm3 150-450 N MEAN PLATELET VOLUME (test c ode = MPV) 11.0 fL 6.7-11.0 N NEUTROPHIL % (test code = NT%) 56.0 % 39.0-69.0 N IMMATURE GRANULOCYTE % (test code = IG%) 0.2 % 0.0-5.0 N LYMPHOCYTE % (test code = LY%) 35.9 % 25.0-55.0 N MONOCYTE % (test code = MO%) 6.4 % 0.0-10.0 N EOSINOPHIL % (test code = EO%) 0.8 % 0.0-5.0 N BASOPHIL % (test code = BA%) 0.7 % 0.0-1.0 N NUCLEATED RBC % (test code = NRBC%) 0.0 % 0-0 N NEUTROPHIL # (test code = NT#) 4.68 K/mm3 1.8-7.7 N IMMATURE GRANULOCYTE # (test code = IG#) 0.02 x10 3/uL 0-0.03 N LYMPHOCYTE # (test code = LY#) 3.01 K/mm3 1.0-5.0 N MONOCYTE # (test code = MO#) 0.54 K/mm3 0-0.8 N EOSINOPHIL # (test code = EO#) 0.07 K/mm3 0.0-0.5 N BASOPHIL # (test code = BA#) 0.06 K/mm3 0.0-0.2 N NUCLEATED RBC # (test code = NRBC#) 0.00 K/mm3 0.0-0.1 N Notes Date/Time Note Provider Source 2024-01-14 14:44:32 [id number] T14:44:32 Reji Bingham is a 28 year old female.Patient calling said pharmacy is asking that the provider send in a new rx for her BC levonorgestrel-ethinyl estradiol (LARISSIA) 0.1-20 mg-mcg per tablet. 11 month supply instead of 12 months so the insurance will cover it. Please assist [id number] encounter [id number]:46:37Telephone encounter [id number]. [id number] for patient [id number] C-CDA narrative [id number] J [address] Sew[id number] [id number]:46 :[id number]|1.2.840.1 [id number] 7 Denita Oropeza [facility]
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
[2024-01-28 13:27] VITALS: BP 129/77; TEMP 98.1; O2SAT 99
== END 2024-01-28 13:14 | disposition home or self-care (01) ==
LOC: ER 12:31
DX: M54.9 Dorsalgia, unspecified (principal); M54.2 Cervicalgia; M79.671 Pain in right foot; V49.49XA Driver injured in collision with other motor vehicles in traffic accident, initial encounter
CPT/HCPCS: 99283